=== PATIENT | male | born 1960 | race Caucasian/White ===

== ENCOUNTER 2019-01-01 10:53 | Observation (INO) ==
[2019-01-01 11:42] LABS: Bilirubin,Urine Negative (Negative); Blood,Urine Negative (Negative); Clarity,Urine Clear (Clear); Color,Urine Yellow (Yellow); Glucose,Urine (UA) Normal (Normal); Ketones,Urine Negative (Negative); Leukocyte Esterase,Urine Negative (Negative); Nitrite,Urine Negative (Negative); PH,Urine 5.5 pH Units (5.0-8.0); Protein,Urine Negative (Neg-Trace); Specific Gravity,Urine 1.026 (1.010-1.025); Urobilinogen,Urine Normal (Normal)
[2019-01-01] MEDS ORDERED: Isovue-370 500 ML BOTTLE IVP ONE ×2 (12:22→16:50)
[2019-01-01] MEDS ORDERED: Ondansetron 4 MG/2 ML VIAL IVP ONE (13:11)
[2019-01-01] MEDS ORDERED: Morphine Sulfate 2 MG/ML SYRINGE IVP ONE (13:11)
[2019-01-01 14:01] LABS: eGFR For African Americans > 60 (> 60); eGFR For Non-African Americans 58 (> 60)
[2019-01-01] MEDS ORDERED: 0.9 % Sodium Chloride 2,000 ML ONE (16:22)
[2019-01-01] MEDS: 0.9 % Sodium Chloride 1,000 ML IVC SCH ×2 (16:25→17:50)
[2019-01-01 16:43] LABS: Hematocrit 43.5 % (37.5-50.1); Hemoglobin 15.2 g/dL (12.9-16.9); Mean Corpuscular HGB Conc 34.9 g/dL (31.6-35.5); Mean Corpuscular Hemoglobin 31.1 pg (28.0-33.3); Mean Corpuscular Volume 89.1 fL (83.0-100.0); Mean Platelet Volume 9.2 fL (9.4-12.4); Platelet Count 182 K/mcL (140-400); Red Blood Count 4.88 M/mcL (4.19-5.50); Red Cell Distribution Width 13.2 % (11.5-14.5)
[2019-01-01 17:02] LABS: Alanine Aminotransferase 32 Units/L (7-52); Albumin 3.9 g/dL (3.5-5.7); Albumin/Globulin Ratio 1.6 (1.1-2.2); Alkaline Phosphatase 96 Units/L (34-104); Aspartate Amino Transferase 22 Units/L (13-39); Bilirubin,Direct 0.1 mg/dL (0.0-0.2); Bilirubin,Indirect 0.4 mg/dL (0.0-1.2); Bilirubin,Total 0.5 mg/dL (0.3-1.0); Globulin 2.4 g/dL (2.4-3.5); Total Protein 6.3 g/dL (6.4-8.9)
[2019-01-01 17:03] LABS: BUN/Creatinine Ratio 15 (6-26); Blood Urea Nitrogen 17 mg/dL (6-20); Calcium 9.2 mg/dL (8.6-10.3); Carbon Dioxide 29 mEq/L (23-29); Chloride 103 mEq/L (98-107); Glucose 119 mg/dL (70-105); Lipase 10 Units/L (11-82); Osmolality,Calculated 289 (280-300); Potassium 4.2 mEq/L (3.5-5.1); Sodium 138 mEq/L (136-145); eGFR For African Americans > 60 (> 60); eGFR For Non-African Americans > 60 (> 60)
[2019-01-01 17:10] LABS: Prothrombin Time 11.1 Seconds (9.4-12.1)
[2019-01-01 17:13] LABS: Activated Partial Thrombo Time 29.8 Seconds (26.0-36.0)
[2019-01-01 17:18] LABS: Troponin I < 0.03 ng/mL (< 0.04)
[2019-01-01] MEDS ORDERED: *HR* Labetalol 20 MG/4 ML SYRINGE IVP ONE ×2 (17:42→17:51)
[2019-01-01] MEDS: Cyanocobalamin (B-12) 1,000 MCG TABLET PO SCH (22:42)
[2019-01-01] MEDS: *HR* Heparin 5,000 UNIT/ML VIAL SQ SCH (22:43)
[2019-01-01 23:23] LABS: Amphetamine Screen,Urine Negative ng/mL (Cutoff=1000)
[2019-01-01 23:24] LABS: Barbiturate Screen,Urine Negative ng/mL (Cutoff=200); Benzodiazepines Screen,Urine Negative ng/mL (Cutoff=200); Cannabinoid Screen,Urine Negative ng/mL (Cutoff = 50); Cocaine Screen,Urine Negative ng/mL (Cutoff= 300); Opiate Screen,Urine Positive ng/mL (Cutoff=300); Phencyclidine Screen,Urine Negative ng/mL (Cutoff=25)
[2019-01-02 02:33] LABS: Prothrombin Time 11.3 Seconds (9.4-12.1)
[2019-01-02 02:35] LABS: Activated Partial Thrombo Time 32.2 Seconds (26.0-36.0)
[2019-01-02 02:37] LABS: Alanine Aminotransferase 33 Units/L (7-52); Albumin 3.9 g/dL (3.5-5.7); Albumin/Globulin Ratio 1.6 (1.1-2.2); Alkaline Phosphatase 88 Units/L (34-104); Aspartate Amino Transferase 21 Units/L (13-39); BUN/Creatinine Ratio 15 (6-26); Bilirubin,Total 0.6 mg/dL (0.3-1.0); Blood Urea Nitrogen 15 mg/dL (6-20); Carbon Dioxide 25 mEq/L (23-29); Chloride 105 mEq/L (98-107); Chol/HDL Ratio 5.1 (0-4.9); Cholesterol 183 mg/dL (< 200); Globulin 2.4 g/dL (2.4-3.5); Glucose 135 mg/dL (70-105); HDL Cholesterol 36 mg/dL (40-59); LDL Cholesterol,Calculated 124 mg/dL (0-99); Osmolality,Calculated 285 (280-300); Potassium 4.5 mEq/L (3.5-5.1); Sodium 136 mEq/L (136-145); Total Protein 6.3 g/dL (6.4-8.9); Triglycerides 114 mg/dL (< 150); Troponin I < 0.03 ng/mL (< 0.04); eGFR For African Americans > 60 (> 60); eGFR For Non-African Americans > 60 (> 60)
[2019-01-02] MEDS: *HR* Heparin 5,000 UNIT/ML VIAL SQ SCH (05:34)
[2019-01-02] MEDS ORDERED: Levothyroxine 25 MCG TABLET PO SCH (06:30)
[2019-01-02 09:27] LABS: Estimated Average Glucose 126 mg/dl
[2019-01-02] MEDS ORDERED: Lisinopril 20 MG TABLET PO SCH (10:25)
[2019-01-02] MEDS: Cyanocobalamin (B-12) 1,000 MCG TABLET PO SCH (10:41)
[2019-01-02 11:08] VITALS: BP 154/95
[2019-01-02] MEDS ORDERED: Aspirin Enteric Coated 325 MG Tablet PO ONE (22:00)
[2019-01-04 08:08] LABS: Immunoglobulin A 309 mg/dL (68-408); Immunoglobulin G 874 mg/dL (768-1632); Immunoglobulin M 41 mg/dL (35-263)
== END 2019-01-02 12:17 | disposition home or self-care (01) ==
LOC: EMEROOARM 10:53 → 3BNU 10:53 → SUATTDRO 18:27 → 3BNU 18:51
PROVIDERS: ADMIT Internal Medicine; ATTEND Family Medicine